=== PATIENT | female | born 1955 ===

== ENCOUNTER 2018-11-07 09:17 | Outpatient (CLI) | payer OTHER | END 2018-11-07 09:18 | disposition home or self-care (01) | LOC: C.MAMMO 09:17 | DX: Z12.31 Encounter for screening mammogram for malignant neoplasm of breast (principal) ==

== ENCOUNTER 2019-01-12 09:42 | Outpatient (CLI) | payer OTHER | END 2019-01-12 09:43 | disposition home or self-care (01) | LOC: C.USIC 09:42 ==